=== PATIENT | female | born 1980 | race Caucasian/White ===

== ENCOUNTER 2017-01-03 09:34 | Emergency (ER) | payer BC ==
--- NOTE | ~2017-01-03 | EKG ---
PATIENT: AUBREY ROBBINS UNIT #: [id number] Ventricular Rate: 70 BPM Atrial Rate: 70 BPM P-R Interval: 128 ms QRS Duration: 80 ms Q-T Interval: 384 ms QTC Calculation(Bezet): 414 ms P [place]: 51 degrees Calculated R [place]: 33 degrees Calculated T [place]: 20 degrees Diagnosis Line: Normal sinus rhythm Diagnosis Line: Normal ECG Diagnosis Line: When compared with ECG of 27-MAY-2015 10:34, Diagnosis Line: No significant change was found Diagnosis Line: Confirmed by YENNIFER STRONG MD ([id number]) on Diagnosis Line: 01/09/2017 5:08:57 PM INTERPRETING MD: GOLD
--- NOTE | ~2017-01-03 | CR72 ---
[facility]. [facility] A Service of [facility] & [facility] RADIOLOGY TEXT RESULTS PATIENT: AUBREY ROBBINS LOCATION: SED : 82 UNIT #: [id number] AGE: [address]: Agustín Templeton MD SEX: F ORDER DR: [id number] [address] [address] [id number] E MR#: [id number] Acc #: [id number] NAME: AUBREY ROBBINS : 1980 SEX: F STUDY DATE/TIME: 01/03/2017 9:58 UNIT: SED ROOM: STUDY DESCRIPTION: CR Chest Single View Portable Attending Physician: Agustín Templeton M.D. Ordering Physician: Agustín Templeton M.D. Primary Care Physician: Marco Moya M.D. MEDICAL IMAGING REPORT This report is preliminary unless electronic signature is present. EXAM Portable chest HISTORY Shortness of air, chest pain x2 days, midsternal pain. COMPARISON 05/27/2015 FINDINGS Portable lordotic view of the chest demonstrates low lung volumes. No infiltrates or effusions. Heart, mediastinum, great vessels and bony thorax are unremarkable. Overall no acute findings. Dictated by... Дмитрий Phan M.D. THIS IS AN ELECTRONICALLY VERIFIED REPORT Дмитрий Phan M.D. at 01/04/2017 12:29 PM Aruna TD: 01/03/2017 23:08 JOB #: [id number] MEDICAL IMAGING REPORT Page 1 of 1
[~2017-01-03 09:34] MED LIST: ALBUTEROL17 GM; ANTIVERT PO; BENADRYL PO; FLEXERIL PO; IBUPROFEN800 MG PO; KAOPECTATE240 MG PO; MEDROL PO; NAPROXEN PO; NEO SYNEPHRINE; NO MEDICATIONS; PHENERGAN25 MG PO; PREDNISONE; PRILOSEC20 MG PO; PROMETHAZINE D118 ML; TYLENOL COLD &240 ML PO; VICODIN 5/500 T1 TAB PO; ZITHROMAX; ZOFRAN ODT4 MG PO; ZOFRAN ODT4 MG/UDTAB SL
[2017-01-03 10:19] LABS: BASOPHIL# 0.1 X10e3 (0-0.3); BASOPHIL% 1.1 % (0-2.5); EOSINOPHIL# 0.4 X10e3 (0-0.7); EOSINOPHIL% 6.4 % (0.0-7.0); HEMATOCRIT 41.9 % (35.0-45.0); HEMOGLOBIN 13.8 gm/dL (12.0-16.0); LYMPHOCYTE# 1.5 X10e3 (1.0-3.5); LYMPHOCYTE% 24.3 % (17.0-45.0); MEAN CELL VOLUME 79.4 FL (83-96); MEAN CORPUSCULAR HEMOGLOBIN 26.2 PG (28-34); MEAN PLATELET VOLUME 10.3 FL (6.5-11.5); MONOCYTE# 0.3 X10e3 (0-1.0); MONOCYTE% 4.4 % (3.0-12.0); NEUTROPHIL% 63.8 % (40-75); PLATELET COUNT 216 X10e3 (140-420); RED BLOOD COUNT 5.28 X10e (3.90-5.30); RED CELL DISTRIBUTION WIDTH 16.2 % (11.0-15.5); WHITE BLOOD COUNT 6.3 X10e3 (4.0-10.5)
[2017-01-03 10:32] LABS: DIFF IND NO
[2017-01-03 10:34] LABS: POC - CKMB <1.0 ng/mL (0.0-7.9); POC - TROPONIN <0.05 ng/mL (<=0.05)
[2017-01-03 10:44] LABS: BUN/CREATININE RATIO 17.14; CALCIUM SERUM 8.8 mg/dL (8.4-10.2); CREATININE SERUM 0.7 mg/dL (0.6-1.4); GLOM FILT RATE Estimated 112.3 mL/min (>60); POTASSIUM 3.7 mmol/L (3.5-5.1)
== END 2017-01-03 11:11 | disposition home or self-care (01) ==
LOC: SED 09:34
PROVIDERS: Emergency Medicine
DX: M94.0 Chondrocostal junction syndrome [Tietze] (principal)
CPT/HCPCS: 36415; 71010; 80048; 82553; 84484; 85025; 93005; 99285

== ENCOUNTER 2017-01-30 12:41 | Emergency (ER) | payer BC ==
--- NOTE | ~2017-01-30 | EKG ---
PATIENT: AUBREY ROBBINS UNIT #: [id number] Ventricular Rate: 81 BPM Atrial Rate: 81 BPM P-R Interval: 138 ms QRS Duration: 82 ms Q-T Interval: 372 ms QTC Calculation(Bezet): 432 ms P [place]: 65 degrees Calculated R [place]: 32 degrees Calculated T [place]: 38 degrees Diagnosis Line: Normal sinus rhythm Diagnosis Line: Normal ECG Diagnosis Line: When compared with ECG of 03-JAN-2017 09:42, Diagnosis Line: No significant change was found Diagnosis Line: Confirmed by TATE REID MD ([id number]) on Diagnosis Line: 02/01/2017 2:14:45 PM INTERPRETING MD: JEANETTE VAN
--- NOTE | ~2017-01-30 | CR72 ---
[facility] A Service of [facility] & [facility] RADIOLOGY TEXT RESULTS PATIENT: AUBREY ROBBINS LOCATION: SED : 82 UNIT #: [id number] AGE: [address]: Agustín Templeton MD SEX: F ORDER DR: [id number] [address] [address] [id number] E MR#: [id number] Acc #: [id number] NAME: AUBREY ROBBINS : 1980 SEX: F STUDY DATE/TIME: 01/30/2017 13:19 UNIT: SED ROOM: STUDY DESCRIPTION: CR Chest Single View Portable Attending Physician: Agustín Templeton M.D. Ordering Physician: Agustín Templeton M.D. Primary Care Physician: Marco Moya M.D. MEDICAL IMAGING REPORT This report is preliminary unless electronic signature is present. EXAM Portable chest 01/30/2017 [facility] HISTORY 36-year-old female, short of air, chest pressure, headaches, dizziness. Chest pains also indicated. Symptoms began today. COMPARISON Comparison 01/03/2017 FINDINGS AP portable chest demonstrates normal stable heart size. Hilar structures and mediastinal contours are preserved. Bilateral lungs are expanded and remain clear. Large body habitus noted. IMPRESSION No acute chest finding. Morbid obesity. Dictated by... Raul Francis M.D. THIS IS AN ELECTRONICALLY VERIFIED REPORT Raul Francis M.D. at 01/31/2017 8:05 AM JBB/vincent TD: 01/30/2017 22:54 JOB #: [id number] MEDICAL IMAGING REPORT Page 1 of 1
[2017-01-30] MEDS ORDERED: BUSPAR5 M1 PO (12:45)
[2017-01-30 13:14] LABS: BASOPHIL# 0.1 X10e3 (0-0.3); BASOPHIL% 0.9 % (0-2.5); EOSINOPHIL# 0.4 X10e3 (0-0.7); EOSINOPHIL% 6.3 % (0.0-7.0); HEMATOCRIT 38.3 % (35.0-45.0); HEMOGLOBIN 12.6 gm/dL (12.0-16.0); LYMPHOCYTE# 2.1 X10e3 (1.0-3.5); MEAN CELL VOLUME 79.8 FL (83-96); MEAN CORPUSCULAR HEMOGLOBIN 26.4 PG (28-34); MEAN CORPUSCULAR HGB CONC 33.1 g/dL (30-36); MEAN PLATELET VOLUME 9.5 FL (6.5-11.5); MONOCYTE# 0.4 X10e3 (0-1.0); MONOCYTE% 6.6 % (3.0-12.0); NEUTROPHIL# 3.8 X10e3 (1.5-7.1); NEUTROPHIL% 55.2 % (40-75); PLATELET COUNT 203 X10e3 (140-420); RED BLOOD COUNT 4.79 X10e (3.90-5.30); RED CELL DISTRIBUTION WIDTH 16.7 % (11.0-15.5); WHITE BLOOD COUNT 6.8 X10e3 (4.0-10.5)
[2017-01-30 13:15] LABS: DIFF IND NO
[2017-01-30 13:32] LABS: BUN/CREATININE RATIO 15.71; CREATININE SERUM 0.7 mg/dL (0.6-1.4); GLOM FILT RATE Estimated 112.3 mL/min (>60); POTASSIUM 3.4 mmol/L (3.5-5.1)
[2017-01-30 13:35] LABS: POC - CKMB 1.2 ng/mL (0.0-7.9); POC - TROPONIN <0.05 ng/mL (<=0.05)
== END 2017-01-30 14:14 | disposition home or self-care (01) ==
LOC: SED 12:41
PROVIDERS: Emergency Medicine
DX: R07.89 Other chest pain (principal); R06.02 Shortness of breath
CPT/HCPCS: 36415; 71010; 80048; 82553; 84484; 84703; 85025; 93005; 96361; 96374; 99285; J2405

== ENCOUNTER 2017-01-31 07:44 | Emergency (ER) | payer BC ==
[~2017-01-31 07:44] MED LIST changes: +BUSPAR5 M1 PO
== END 2017-01-31 09:13 | disposition home or self-care (01) ==
LOC: SED 07:44
DX: K29.00 Acute gastritis without bleeding (principal)
CPT/HCPCS: 99283